=== PATIENT | female | born 1995 | race Caucasian/White ===

== ENCOUNTER → 2017-04-09 | Outpatient (CLI) | payer OTHER ==
[2017-04-09 16:44] LABS: HEMATOCRIT 37.9 % (37-47); MEAN CELL VOLUME 93.1 fL (80-100); MEAN CORPUSCULAR HEMOGLOBIN 31.4 pg (25-34); MEAN CORPUSCULAR HGB CONC 33.8 g/dl (32-36); PLATELET COUNT 235 K/uL (130-400); RED BLOOD COUNT 4.07 M/uL (4.2-5.4)
[2017-04-09 17:06] LABS: BASO % 0.2 %; BASO ABS # 0.01 K/uL (0-0.2); COMPLETE YES; ECHINOCYTES 1+; EOS % 1.8 %; IG% 0.2 %; LYMPH % 50.9 %; LYMPH ABS # 2.29 K/uL (1.2-3.4); MONO % 8.9 %; TOXIC GRANULATION 1+
== END | disposition home or self-care (01) ==
LOC: C.LABPBG 10:58
PROVIDERS: ATTEND Internal Medicine Medical Oncology
DX: F15.20 Other stimulant dependence, uncomplicated (principal)

== ENCOUNTER 2017-07-28 19:41 | Inpatient (IN) | payer OTHER ==
[~2017-07-28] VITALS: Ht 160 cm; Wt 49.7 kg
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
[2017-07-28 21:46] LABS: BASO % 0.3 %; BASO ABS # 0.02 K/uL (0-0.2); EOS % 2.3 %; EOS ABS # 0.18 K/uL (0-0.5); HEMATOCRIT 39.4 % (37-47); HEMOGLOBIN 13.6 g/dL (12.0-16.0); IG# 0.01 K/uL (0.00-0.02); LYMPH % 29.8 %; LYMPH ABS # 2.34 K/uL (1.2-3.4); MEAN CELL VOLUME 88.7 fL (80-100); MEAN CORPUSCULAR HEMOGLOBIN 30.6 pg (25-34); MEAN CORPUSCULAR HGB CONC 34.5 g/dl (32-36); MEAN PLATELET VOLUME 10.6 fL (7.4-10.4); MONO % 6.2 %; MONO ABS # 0.49 K/uL (0.11-0.59); NEUT % 61.3 %; NEUT ABS # 4.81 K/uL (1.4-6.5); PLATELET COUNT 262 K/uL (130-400); RED CELL DISTRIBUTION WIDTH CV 12.2 % (11.5-14.5); RED CELL DISTRIBUTION WIDTH SD 39.2 fL (36.4-46.3); WHITE BLOOD COUNT 7.85 K/uL (4.8-10.8)
[2017-07-28 22:07] LABS: ALBUMIN 4.1 gm/dl (3.4-5.0); CALCIUM 9.3 mg/dl (8.5-10.1); CREATININE 0.83 mg/dl (0.60-1.20); POTASSIUM 3.8 mmol/L (3.5-5.1)
[2017-07-28 22:17] LABS: TOTAL PROTEIN 7.1 gm/dl (6.4-8.2)
[2017-07-28] MEDS ORDERED: SERT50TA PO (23:53)
[2017-07-28] MEDS ORDERED: TRAZ50TA35 PO (23:54)
[2017-07-28] MEDS ORDERED: CLON0.1T12 PO (23:55)
[2017-07-29] MEDS ORDERED: NURSING VERBAL MED ORDER ONE (00:15)
[2017-07-29] MEDS ORDERED: NICOTINE 21 MG/24 HR TDSY TD STA (00:43)
[2017-07-29 00:50] VITALS: O2SAT 100
[2017-07-29 01:06] VITALS: BP 100/69; PULSE 88; TEMP 37; Ht 160 cm; Wt 49.7 kg
[2017-07-29] MEDS ORDERED: hydrOXYzine HCL 25 MG TAB PO PRN ×2 (01:45)
[2017-07-29] MEDS ORDERED: BISMUTH SUBSALICYLATE PER ML OMNICELL CHARGE PO PRN (01:45)
[2017-07-29] MEDS ORDERED: ACETAMINOPHEN 325 MG TAB PO PRN (01:45)
[2017-07-29] MEDS ORDERED: SODIUM CHLORIDE 0.65% NA SOLN 45 ML (OCEAN) PRN (01:45)
[2017-07-29] MEDS ORDERED: ALUMINUM/MAGNESIUM SUSP 30 ML UDC PO PRN (01:45)
[2017-07-29] MEDS ORDERED: MAGNESIUM HYDROXIDE SUSP 30 ML UDC PO PRN (01:45)
[2017-07-29 07:14] VITALS: BP_SYST 100; BP_SYST 109; BP_DIAS 63; BP_DIAS 70; PULSE 61; PULSE 85; TEMP 36.8
[2017-07-29] MEDS ORDERED: INFLUENZA VIRUS QUAD VACCINE 0.5 ML SYR IM. ONE (08:00)
[2017-07-29] MEDS ORDERED: INFLUENZA ADMINISTRATION CHARGE ONE (08:00)
--- NOTE | 2017-07-29 09:37 | Discharge Instructions ---
Discharge Information Report Includes Report will include the: Discharge Instructions & Summary Admission Admission Date / Time: Jul 29, 2017 at 00:14 Reason for Admission: Depression, Nos Discharge Discharge Diagnosis / Problem: depression Condition at Discharge: patient just admitted last night through the emergency department and we are being required to transfer her to an in network facility. There has been no change to her condition Discharge Goals Goal(s): Improve disease control Activity Recommendations Activity Limitations: resume your previous activity . Instructions / Follow-Up Instructions / Follow-Up . SPECIAL CARE INSTRUCTIONS: 1. Follow through with your scheduled aftercare appointments. If unable to keep an appointment, please call to reschedule. 2. Take your medication only as prescribed. Medication should not be changed or stopped without the approval of your doctor. In the event of worsening symptoms or concerns about side effects, contact your doctor immediately. 3. Utilize new healthy coping skills, anger management skills, and stress management skills learned during your hospitalization. Journal feelings and process them with a support person. Identify stressors or situations that may result in relapse, deterioration or inappropriate behaviors and develop a plan to deal with those issues. 4. If your coping skills are ineffective and you are in crisis, contact your outpatient providers for direction. If unable to reach your providers, please call the CAN HELP LINE AT or go to the closest Emergency Room. 5. Avoid alcohol and un-prescribed drugs. 6. You have been provided with the Mental Health Advance Directives Pamphlet for your review. AFTERCARE APPOINTMENTS: * Please call your insurance company prior to your scheduled appointment to confirm your aftercare providers are covered. Take your insurance information to your appointments. . Discharge / Aftercare Planning Primary Care Physician: Name: Dr. Luu Therapist: Name Of Therapist: Lynnette Waiter/Waitress Economy Class: Name: Lynnette . Follow-Up Care Plan for Follow-Up Care: As an in network facility with insurance Current Hospital Diet Patient's current hospital diet: Regular Diet Discharge Diet Recommended Diet: Regular Diet Procedures Procedures Performed: No Pending Studies Pending Studies at Discharge: No Medical Emergencies . Who to Call and When: Medical Emergencies: For questions or emergencies related to your hospital stay, please contact the Inpatient Behavioral Health Unit at [phone]. A surgical manager is on-call 21/12 for the Behavioral Health Unit for emergencies At any time you feel your situation is an emergency, you may also call 911 immediately. . Non-Emergent Contact Non-Emergency issues call your: Psychiatrist, Therapist Advance Directives Existing Advance Directive: No Do You Have an Existing Mental: No Existing Living Will: No Existing Power of [employer]: No Advance Directives Info Given: To Pt/S.O. Advance Directives Reason: Declines as Mental Health Visit. Discharge Summary Admission HPI Per the Admitting provider: 22-year-old woman who presented to our emergency department with a 3 week course of worsening depression and substance use. She was suicidal, admitted on a voluntary commitment Hospital Course (1) Suicidal ideation 07/29 - The patient was admitted to our unit last night on a voluntary commitment with suicidal ideation. She was seen this morning by the psychiatrist and we are now being asked by the insurance to transfer to an in network facility, which the patient is willing for. She will be provided secure transport and is safe to do so. Protective Factors Assessment Employed: No Day of Discharge Assessment DISCHARGE ASSESSMENT: The patient was just admitted last night for unit on a voluntary commitment through the emergency department after presenting with depression, suicidal ideation and methamphetamine abuse. She was seen this morning for assessment but we are being asked by her insurance to transfer her to an in network facility. She is agreeable to this, [place] [facility] will be provided with secure transport there. She is safe for discharge at this time. We made no acute changes to her medications today and will leave that to the receiving facility. Laboratory Test 07/28/17 20:52 07/28/17 20:55 White Blood Count 7.85 Red Blood Count 4.44 Hemoglobin 13.6 Hematocrit 39.4 Mean Corpuscular Volume 88.7 Mean Corpuscular Hemoglobin 30.6 Mean Corpuscular Hemoglobin Concent 34.5 Platelet Count 262 Mean Platelet Volume 10.6 Neutrophils (%) (Auto) 61.3 Lymphocytes (%) (Auto) 29.8 Monocytes (%) (Auto) 6.2 Eosinophils (%) (Auto) 2.3 Basophils (%) (Auto) 0.3 Neutrophils # (Auto) 4.81 Lymphocytes # (Auto) 2.34 Monocytes # (Auto) 0.49 Eosinophils # (Auto) 0.18 Basophils # (Auto) 0.02 RDW Standard Deviation 39.2 RDW Coefficient of Variation 12.2 Immature Granulocyte % (Auto) 0.1 Immature Granulocyte # (Auto) 0.01 Sodium Level 136 Potassium Level 3.8 Chloride Level 104 Carbon Dioxide Level 28 Anion Gap 4.0 Blood Urea Nitrogen 5 Creatinine 0.83 Est Creatinine Clear Calc Drug Dose 81.0 Estimated GFR () 114.4 Estimated GFR (Non- 98.7 BUN/Creatinine Ratio 6.0 Random Glucose 89 Calcium Level 9.3 Magnesium Level 2.2 Total Bilirubin 0.3 Direct Bilirubin 0.1 Aspartate Amino Transferase (AST) 8 Alanine Aminotransferase (ALT) 19 Alkaline Phosphatase 59 Total Protein 7.1 Albumin 4.1 Thyroid Stimulating Hormone (TSH) 0.497 Salicylates Level 3.8 Acetaminophen Level < 2 Ethyl Alcohol mg/dL < 3.0 Urine Color YELLOW Urine Appearance CLEAR Urine pH 7.0 Urine Specific [place] 1.005 Urine Protein NEG Urine Glucose (UA) NEG Urine Ketones NEG Urine Occult Blood 1+ Urine Nitrite NEG Urine Bilirubin NEG Urine Urobilinogen NEG Urine Leukocyte Esterase TRACE Urine WBC (Auto) 5-10 Urine RBC (Auto) 0-4 Urine Hyaline Casts (Auto) 0 Urine Epithelial Cells (Auto) >30 Urine Bacteria (Auto) 1+ Urine Test NEG Urine Opiates Screen NEG Urine Methadone, Qualitative NEG Urine Barbiturates NEG Urine Phencyclidine (PCP) Level NEG Urine Amphetamines Confirmation Pending Ur Amphetamine/Methamphetamine POS Urine Methamphetamine Confirmation Pending Urine MDE-amphetamine (MDEA) Pending Ur Methylenedioxyamphetamine (MDA) Pending MDMA (Ecstasy) Screen POS Methylenedioxymethamphetamine (MDMA Pending Urine Benzodiazepines Screen NEG Urine Cocaine Metabolite NEG Urine Marijuana (THC) NEG Total Time Total Time Spent (min): Less than 30 minutes Total Time Included: discharge planning, medication reconciliation, communication with other providers Tobacco Cessation at Discharge Smoking Status: Current Every Day Smoker FDA approved Prescription: declined med & out pt counseling
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
[2017-07-29 10:19] VITALS: BP 109/70; PULSE 85; TEMP 36.8; O2SAT 100
[2017-07-29 11:52] VITALS: BP 108/71; PULSE 89
[2017-07-29] MEDS ORDERED: CLONIDINE HCL 0.1 MG TAB PO ONE (11:53)
[2017-07-29] MEDS ORDERED: SERTRALINE HCL 50 MG TAB PO ONE (12:00)
[2017-07-29] MEDS ORDERED: CLONIDINE HCL 0.1 MG TAB PO SCH (22:00)
[2017-07-29] MEDS ORDERED: TRAZODONE HCL 50 MG TAB PO SCH (22:00)
[2017-07-30] MEDS ORDERED: SERTRALINE HCL 50 MG TAB PO SCH (09:00)
== END 2017-07-29 13:00 | DRG 880 ==
LOC: EDBD 19:41 → C.EDA 19:43 → C.MHU 07-29 00:14
PROVIDERS: ADMIT Psychiatry & Neurology Child & Adolescent Psychiatry; ATTEND Psychiatry & Neurology Psychiatry
DX: R45.851 Suicidal ideations (principal); F32.9 Major depressive disorder, single episode, unspecified; F15.10 Other stimulant abuse, uncomplicated; F11.10 Opioid abuse, uncomplicated; F17.200 Nicotine dependence, unspecified, uncomplicated; Z91.5 Personal history of self-harm; Z91.410 Personal history of adult physical and sexual abuse; Z81.8 Family history of other mental and behavioral disorders; Z81.3 Family history of other psychoactive substance abuse and dependence; Z79.899 Other long term (current) drug therapy; Z91.018 Allergy to other foods

== ENCOUNTER 2017-09-29 17:33 | Emergency (ER) | payer OTHER ==
[~2017-09-29] VITALS: Ht 160 cm; Wt 52.5 kg
[~2017-09-29 17:33] MED LIST: SERT50TA PO
[2017-09-29 17:36] VITALS: TEMP 37.4; Ht 160 cm; Wt 52.5 kg
[2017-09-29] MEDS ORDERED: HYDR25CA PO (18:00)
[2017-09-29] MEDS ORDERED: PARO1TAB27 PO (18:00)
[2017-09-29 20:25] VITALS: BP 129/84; PULSE 96; O2SAT 97
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
[2017-09-29] MEDS ORDERED: TRAZ50TA35 PO (23:54)
[2017-09-29] MEDS ORDERED: CLON0.1T12 PO (23:55)
== END 2017-09-29 20:30 | disposition home or self-care (01) ==
LOC: EDBD 17:33 → C.EDC 17:34
DX: Z00.8 Encounter for other general examination (principal); F11.10 Opioid abuse, uncomplicated; F17.210 Nicotine dependence, cigarettes, uncomplicated; Z79.899 Other long term (current) drug therapy; Z91.018 Allergy to other foods